=== PATIENT | female | born 1975 | race Caucasian/White ===

== ENCOUNTER 2017-06-20 15:17 | Outpatient (CLI) | payer BC ==
--- NOTE | 2017-06-20 17:35 | RAD ---
LUMBAR SPINE FOUR VIEWS: 06/20/17 HISTORY: Low back pain. FINDINGS: There are five lumbar type vertebrae. Pedicles are intact. Minimal leftward convexed curvature is samuel arent on the frontal view. Vertebral body heights and AP alignment are maintained. No abnormal transl ational motion is evident upon flexion or extension. IMPRESSION: No acute osseous abnormalities are demonstrated. POS: JIMMY
--- NOTE | 2017-06-20 18:15 | MRI ---
MR OF THE LUMBAR SPINE WITHOUT CONTRAST 06/20/17 INDICATION: History of low back pain extending down into left hip. TECHNIQUE: Multiplanar and multisequence MR images were obtained of the lumbar spine without IV contrast. No rad iographic or MR comparisons are available. FINDINGS: The visualized aspects of the retroperitoneum and perivertebral soft tissues appears within normal li mits. There is mild Modic end plate degenerative changes seen at L4-5. There is benign appearing marichuy ngioma versus focal fatty marrow involving the posterior superior aspect of L5. At L5-S1, there is a broad based disc bulge with facet hypertrophy inducing moderate bilateral neural foraminal narrowing. The broad based bulge also causes mild effacement of the ventral subarachnoid s pace. At L4-5, there is a broad based disc bulge with facet hypertrophy inducing mild bilateral neural fora chang narrowing. At L3-4, there is a broad based bulge with a superimposed central protrusion causing mild central can al narrowing. At L2-3, there is mild facet joint degenerative change and a mild broad based bulge. At L1-2, there is mild facet joint degenerative change and broad based bulge. At T12-L1, there is no appreciable central canal or neural foraminal narrowing. Mildly prominent follicles are seen within both adnexa. IMPRESSION: 1. Moderate bilateral neural foraminal narrowing at L5-S1. 2. Mild bilateral neural foraminal narrowing at L4-5. 3. Mild central canal narrowing at L3-4 due to a broad based disc bulge with a superimposed cent ral protrusion. POS: JIMMY
== END 2017-06-20 15:18 | disposition home or self-care (01) ==
LOC: TBSIIMAG 15:17
PROVIDERS: ATTEND Surgery
DX: M54.16 Radiculopathy, lumbar region (principal); M48.061 Spinal stenosis, lumbar region without neurogenic claudication; M99.83 Other biomechanical lesions of lumbar region; M99.84 Other biomechanical lesions of sacral region
CPT/HCPCS: 72110; 72148

== ENCOUNTER 2017-08-22 05:49 | Day surgery (SDC) | payer BC ==
[2017-08-22] MEDS ORDERED: Sodium Chloride 0.9% 10 ML ONE (06:28)
[2017-08-22] MEDS ORDERED: Bacitracin Zinc Ointment 30 gm TUBE ONE (06:29)
[2017-08-22] MEDS ORDERED: Thrombin 5000 UNITS/5 ML VIAL ONE (06:29)
[2017-08-22 06:48] LABS: #Basophils 0.1 thou/uL (0.0-0.2); #Eosinphils 0.4 thou/uL (0.0-0.7); #Monocytes 0.6 thou/uL (0.11-0.59); #Neutrophils 6.2 thou/uL (1.40-6.50); %Basophils 0.8 % (0.0-1.0); %Eosinophils 4.2 % (0.0-10.0); %Lymphocytes 21.1 % (21.0-51.0); %Monocytes 6.9 % (0.0-10.0); %Neutrophils 67.1 % (42.0-75.0); Hemoglobin 12.2 g/dL (12.0-16.0); Mean Corpuscular HGB CONC 33.7 g/dL (32.0-36.0); Mean Corpuscular Hemoglobin 28.8 pg (27.0-31.0); Mean Corpuscular Volume 85.6 fl (81.0-99.0); Mean Platelet Volume 8.3 fL (7.4-10.4); Platelet Count 250 thou/uL (130-400); RBC Distribution Width 15.8 % (11.5-14.5); Red Blood Cell (RBC) Count 4.24 mill/uL (4.20-5.40); White Blood Cell (WBC) Count 9.3 thou/uL (4.8-10.8)
[2017-08-22] MEDS ORDERED: Levofloxacin 500 mg/D5W 100 ml Premix Bag ONE (06:53)
[2017-08-22] MEDS ORDERED: Clindamycin/D5W 900 mg/50 ml Premix Bag ONE (06:53)
[2017-08-22 07:01] LABS: PTT 29.5 SEC (22.9-36.1)
[2017-08-22 07:05] LABS: Anion Gap 12 mmol/L (10-20); BUN (Urea Nitrogen) 14 mg/dL (7.0-18.7); Calc. Creatinine Clearance 142 mL/min (70-130); Carbon Dioxide 23 mmol/L (22-29); Chloride 104 mmol/L (98-107); Estimated GFR-MDRD 86; Glucose 109 mg/dL (70-105); Potassium 3.8 mmol/L (3.5-5.1); Sodium 135 mmol/L (136-145)
[2017-08-22] MEDS ORDERED: Fentanyl 250 MCG/5 ML VIAL ONE (07:27)
[2017-08-22] MEDS ORDERED: Midazolam HCl 2 mg/2 ml Vial ONE (07:35)
[2017-08-22] MEDS ORDERED: Ondansetron HCl/PF 4 MG/2 ML Vial IVP PRN ×2 (10:13→10:30)
[2017-08-22] MEDS ORDERED: Morphine Sulfate 2 MG/ML SYRINGE SLOW IVP PRN (10:13)
[2017-08-22] MEDS ORDERED: Promethazine HCl 25 MG/ML VIAL SLOW IVP PRN (10:13)
[2017-08-22] MEDS ORDERED: Promethazine HCl 25 MG/ML VIAL IM PRN ×2 (10:13→10:30)
[2017-08-22] MEDS ORDERED: Meperidine HCl/PF 25 MG/ML VIAL SLOW IVP PRN (10:13)
[2017-08-22] MEDS ORDERED: HYDROmorphone 2 MG/ML VIAL SLOW IVP PRN (10:13)
[2017-08-22] MEDS ORDERED: Fleet Enema 133 ML BOT PR PRN (10:30)
[2017-08-22] MEDS ORDERED: Acetaminophen/Codeine 30-300mg Tablet PO PRN (10:30)
[2017-08-22] MEDS ORDERED: Mag-Al 1200 mg/1200 mg/30 ML UDCUP PO PRN (10:30)
[2017-08-22] MEDS ORDERED: Milk Of Magnesia 30 ML UDCUP PO PRN (10:30)
[2017-08-22] MEDS ORDERED: Acetaminophen 325 MG TAB PO PRN (10:30)
[2017-08-22] MEDS ORDERED: traMADol HCl 50 MG TAB PO PRN (10:30)
[2017-08-22] MEDS ORDERED: Bisacodyl 10 MG SUPP PR PRN (10:30)
[2017-08-22] MEDS ORDERED: Fentanyl 100 MCG/2 ML VIAL ONE (10:59)
[2017-08-22] MEDS ORDERED: Morphine 4 MG/ML VIAL SLOW IVP PRN (13:20)
[2017-08-22] MEDS: Sodium Chloride 0.9% 1,000 ML IV SCH (13:25)
[2017-08-22 13:30] VITALS: BMI 32.9
[2017-08-22] MEDS ORDERED: Clindamycin/D5W 900 MG in Premix Bag 1 BAG IVPB SCH (14:00)
[2017-08-22] MEDS: Clindamycin/D5W 900 MG in Premix Bag 1 BAG IVPB SCH (15:58)
[2017-08-22] MEDS: Gabapentin 300 MG CAP PO SCH ×2 (15:58→21:48)
[2017-08-22] MEDS: HYDROcodone/Acetaminophen 7.5/325 mg Tablet PO PRN ×2 (16:05→23:06)
[2017-08-22] MEDS: tiZANidine HCl 4 MG TAB PO PRN ×2 (16:05→23:06)
[2017-08-23] MEDS: Clindamycin/D5W 900 MG in Premix Bag 1 BAG IVPB SCH (00:52)
[2017-08-23] MEDS: HYDROcodone/Acetaminophen 7.5/325 mg Tablet PO PRN ×2 (04:05→10:45)
[2017-08-23] MEDS: Sodium Chloride 0.9% 1,000 ML IV SCH (06:03)
[2017-08-23] MEDS: Gabapentin 300 MG CAP PO SCH (08:23)
[2017-08-23] MEDS: tiZANidine HCl 4 MG TAB PO PRN (08:24)
[2017-08-23 11:42] VITALS: TEMP 98.1
[2017-08-23 11:51] VITALS: BP 98/54
--- NOTE | 2017-08-23 14:00 | OP ---
SURGEON: Odilon Andrade M.D. SENIOR ENGINEERING TECHNICIAN: Harshal Heredia PA-C PREPROCEDURE DIAGNOSIS: Left L4, left L5 radiculopathies. POSTPROCEDURE DIAGNOSIS: Left L4, left L5 radiculopathies. PROCEDURE: 1. Left L3-L4 and left L4-L5 hemilaminotomies, foraminotomies with disk space exploration left L3-L4 and diskectomy at left L4-L5. 2. Use of operative microscope for microdissection. DESCRIPTION OF PROCEDURE: After informed consent was obtained from the patient, the patient brought to OR. Proper patient pause and identification was carried out. She was placed in excellent endotra cheal anesthesia and positioned prone on the OR table. We then made a linear rhett over the L3-L5 seg ment. This region was sterilely cleansed, prepared, and draped. Proper patient pause and identifica tion was carried out. The wound was then opened with combination of sharp, monopolar and blunt disse ction. Left L3, L4, L5 hemilamina were exposed. Localization film confirmed our area of interest an d performed left L3-L4 and left L4-L5 hemilaminotomies, move the yellow ligament. The microscope was brought in for microdissection. Left L4 root was identified. I ensured freedom of the left L3 nerv e root. There was no disk I felt needed to be removed at left L4 root, we had excellent decompressio n. Turned my attention to the left L4-L5 segment, there was disk material that is felt need to be re moved to ensure freedom of the left L5 nerve root. This was done, we had excellent decompression. C opious irrigation occurred throughout, hemostasis was maximized. The wound was closed in anatomic la yers following the sprinkling of vancomycin powder. The patient then emerged from anesthesia.
--- NOTE | 2017-08-23 16:52 | PRG ---
DATE OF SERVICE: 08/23/2017 Ms. Alicea is postoperative day 1 from left L3-L4 and left L4-L5 hemilaminotomies, foraminotomies with disk space exploration of the left L3-L4 segment and diskectomy at the left L4-L5 segment. She stat es the radicular pain in the left lower extremity consistent with left L4 and left L5 radiculopathy p reoperatively has resolved. She has had some discomfort in the hip, but certainly this is better david n before surgery. She has also had a muscle spasm-related pain, but is doing very well. She has mob ilized to the bathroom. We will mobilize her further throughout the morning. Should she do well in the postoperative period this morning, we will very likely plan for dismissal. On exam, she is alert , appropriate with excellent strength throughout her lower extremity myotomes. I am very pleased wit h her outcome, and there have been no wound issues.
== END 2017-08-23 12:44 | disposition home or self-care (01) ==
LOC: SDC 05:49 → SURG B 11:20 → SDC 08-23 12:44
PROVIDERS: ATTEND Surgery
PROC: 0SB20ZZ Excision of Lumbar Vertebral Disc, Open Approach (ICD-10-PCS; principal; 2017-08-23)
PROC: 01NB0ZZ Release Lumbar Nerve, Open Approach (ICD-10-PCS; principal; 2017-08-23)
DX: M54.16 Radiculopathy, lumbar region (principal); F32.9 Major depressive disorder, single episode, unspecified; Z88.0 Allergy status to penicillin; Z87.891 Personal history of nicotine dependence; Z79.899 Other long term (current) drug therapy; Z98.1 Arthrodesis status
CPT/HCPCS: 36415; 76001; 80048; 85025; 85610; 85730; 93005; 93010; 96374; A4216; J0131; J1956; J2250; J2270; J3010; J3370; J3490

== ENCOUNTER 2019-04-29 13:32 | Outpatient (CLI) | payer BC ==
--- NOTE | 2019-04-29 15:39 | RAD ---
LUMBAR SPINE SERIES 4 VIEWS INCLUDING FLEXION AND EXTENSION: Date: 04/29/19 HISTORY: Low back pain with pain going down both legs. FINDINGS: The vertebral bodies are normal in height. There is some minimal degenerative osteophytic change and some very mild disc narrowing at L4-5. No spondylolisthesis or abnormal motion on flexion and extensi on. Overall appearance is fairly stable as compared to the 06/20/17 study. IMPRESSION: Stable exam. POS: BHAVYA
== END 2019-04-29 13:33 | disposition home or self-care (01) ==
LOC: TBSIIMAG 13:32
PROVIDERS: ATTEND Surgery
DX: M54.5 Low back pain (principal)
CPT/HCPCS: 72110

== ENCOUNTER 2019-10-08 06:41 | Outpatient (CLI) | payer BC, OTHER ==
[2019-10-08 18:18] LABS: Hemoglobin 14.5 g/dL (12.0-16.0); Mean Corpuscular HGB CONC 34.2 g/dL (32.0-36.0); Mean Corpuscular Hemoglobin 31.9 pg (27.0-31.0); Mean Corpuscular Volume 93.2 fL (78.0-98.0); Mean Platelet Volume 9.1 fL (7.4-10.4); Platelet Count 281 thou/uL (130-400); RBC Distribution Width 11.3 % (11.5-14.5); Red Blood Cell (RBC) Count 4.53 mill/uL (4.20-5.40); White Blood Cell (WBC) Count 10.4 thou/uL (4.8-10.8)
[2019-10-08 18:25] LABS: INR-International Normal Ratio 0.8; Prothrombin Time 11.4 sec (12.0-14.7)
[2019-10-08 18:26] LABS: PTT 28.9 SEC (22.9-36.1)
[2019-10-08 18:37] LABS: Anion Gap 14 mmol/L (10-20); BUN (Urea Nitrogen) 10 mg/dL (7.0-18.7); Calc. Creatinine Clearance 0 mL/min (70-130); Carbon Dioxide 24 mmol/L (22-29); Chloride 103 mmol/L (98-107); Estimated GFR-MDRD 83; Glucose 98 mg/dL (70-105); Potassium 3.6 mmol/L (3.5-5.1); Sodium 137 mmol/L (136-145)
[2019-10-09 10:42] LABS: SARS-CoV-2 MS2 Positive; SARS-CoV-2 N Gene Negative; SARS-CoV-2 S Gene Negative; SARS-CoV-2 orf1ab Negative
== END 2019-10-08 06:42 | disposition home or self-care (01) ==
LOC: LABBT 06:41
PROVIDERS: ATTEND Surgery
DX: Z01.818 Encounter for other preprocedural examination (principal); Z11.59 Encounter for screening for other viral diseases; M54.16 Radiculopathy, lumbar region; M48.061 Spinal stenosis, lumbar region without neurogenic claudication
CPT/HCPCS: 80048; 85027; 85610; 85730; 87635; 93005; 93010; U0003